=== PATIENT | female | born 1955 | race Caucasian/White ===

== ENCOUNTER 2018-08-22 16:12 | Inpatient (IN) ==
[2018-08-22] MEDS ORDERED: ZYLOPRIM PO PRN (18:51)
[2018-08-22] MEDS: LEVAQUIN 500 MG/D5W 500 MG/100 ML IVPB IV SCH (19:31)
[2018-08-22] MEDS: LOVENOX SUBQ SCH (19:31)
[2018-08-22] MEDS: PROTONIX IV SCH (19:32)
[2018-08-22] MEDS: SODIUM CHLORIDE 0.9% INJ SCH (19:32)
[2018-08-22] MEDS: ULTRAM PO PRN (19:32)
[2018-08-22] MEDS: SOLU-MEDROL IV SCH (19:32)
[2018-08-22] MEDS: DUONEB (A & A) INH SCH ×2 (20:05→23:45)
[2018-08-22 20:27] LABS: ALLEN TEST YES; BE -1.9 mmoll (-3.0-3.0); BLOOD TYPE ARTERIAL; HCO3-(ACT) 23.4 mmoll (20.0-26.0); O2(CT) 18.1 mL/dL (15.0-23.0); O2HB 96.1 % (95.0-99.0); PCO2(98.6) 35 mmHg (35-45); PO2(98.6) 95 mmHg (60-100); SAMPLE BLOOD; THB 13.3 g/dL (11.5-17.4); pH(98.6) 7.41 (7.35-7.45)
[2018-08-22 20:28] LABS: MODALITY CANNULA
[2018-08-22] MEDS: HUMALOG SUBQ SCH ×2 (21:33→21:34)
[2018-08-22] MEDS: GLUCOPHAGE PO SCH (21:33)
[2018-08-22] MEDS: NEURONTIN PO SCH (21:33)
[2018-08-22] MEDS: ZOCOR PO SCH (21:33)
[2018-08-22] MEDS ORDERED: HALL'S COUGH LOZENGE MT PRN (21:54)
[2018-08-23] MEDS: DUONEB (A & A) INH SCH ×6 (03:52→23:02)
[2018-08-23] MEDS: ULTRAM PO PRN ×3 (03:57→18:01)
[2018-08-23] MEDS: SOLU-MEDROL IV SCH ×3 (03:57→18:02)
--- NOTE | 2018-08-23 04:47 | HISTORY AND PHYSICAL ---
CHIEF COMPLAINT: Incessant cough, shortness of breath, wheezing for the last 2 days. HISTORY OF PRESENT ILLNESS: She is a 63-year-old, complicated diabetes, white female who was seen in the emergency room 3 days ago with upper respiratory infection with bronchitis. Sent home on outpatient treatment. She came in my office. She is extremely wheezing, shortness of breath. Admitted to the hospital for acute asthma exacerbation. PAST MEDICAL HISTORY: 1. Insulin-requiring type 2 diabetes. 2. Morbid obesity. 3. Peripheral neuropathy. 4. Hypertension. 5. Hyperlipidemia. 6. History of asthma. 7. History of pulmonary embolism. PAST SURGICAL HISTORY: 1. Tubal ligation. 2. Radical hysterectomy for endometrial cancer. 3. Right ear mastoidectomy. 4. Cholecystectomy by Dr. Mosquera in 2017. ALLERGIES: Reported to penicillin. SOCIAL HISTORY: Lives in [place]. , with 3 children. No smoking. No alcohol. Disabled. FAMILY HISTORY: Mom is alive with PSVT and heart failure, stable. Father is alive with complicated diabetes and chronic kidney disease. MEDICATIONS: Singulair 5 mg daily, metformin 1000 p.o. b.i.d., Neurontin 600 b.i.d., lisinopril 20 in the morning, Clarinex 10 mg in the morning, Zocor 40 daily, acarbose 50 once daily, Protonix 40 daily, Proventil as needed, allopurinol 100 daily, tramadol 50 q.6 as needed. PREVIOUS WORKUP: Cardiac catheterization was negative on 09/18/2012. REVIEW OF SYSTEMS: HEENT: Sniffles, coryza, postnasal drainage. Incessant cough. No earache. Slightly sore throat. Cardiopulmonary: Cough, wheezing, shortness of breath. No chest pain. Breasts: No lumps in the breasts. GI: No nausea, vomiting, abdominal pain. : No history of hesitancy, frequency, dysuria. No back pain. Musculoskeletal: No claudication symptoms. No skin rashes. No joint pain. Neurologic: No focal symptoms or weakness. PHYSICAL EXAMINATION: VITAL SIGNS: Temperature is 97 degrees, tachycardic. Vitals are stable. She is 5 feet 9 inches, 249 pounds. On 2 L nasal cannula. HEENT EXAMINATION: Atraumatic, normocephalic. Pupils equal, react to light. TMs are normal. Nose and throat are within normal limits. NECK: Supple. No lymphadenopathy. No goiter. CHEST: There is bilateral wheezing. CARDIOVASCULAR: Distant heart sounds. BREASTS: Examination deferred. ABDOMEN: Belly is soft, obese, nontender. Good bowel sounds. EXTREMITIES: No signs of gangrene. NEUROLOGIC: No obvious neurological deficits. INVESTIGATIONS: The labs are still pending. Chest x-ray in my office, basically bronchitis. ASSESSMENT AND PLAN: A 63-year-old, white female admitted to the hospital for acute asthma exacerbation. Follow up on the pending labs and the chest x-ray. In the meantime, continue on intravenous Levaquin, intravenous Solu-Medrol, bronchodilators. 1. Deep venous thrombosis and gastrointestinal prophylaxis with Lovenox and Protonix. 2. Reconcile home medicines. 3. Continue to watch the blood sugars, on sliding scale with insulin coverage. 4. Initiate vaccination protocol prior to the discharge. cc: Raad Miller MD
[2018-08-23 06:25] LABS: BASO# 0.01 X1000 (0.0-0.2); BASO% 0.1 % (0.0-0.8); HEMATOCRIT 41.3 % (37.0-47.0); HEMOGLOBIN 13.1 g/dL (12.0-16.0); IMM GRAN# 0.02 X1000 (0.0-0.04); IMM GRAN% 0.3 % (0.0-0.5); LYMPH# 0.85 X1000 (1.2-3.4); LYMPH% 11.6 % (20.5-51.1); MCHC 31.7 g/dL (33-37); MCV 75.8 FL (81-99); MONO# 0.03 X1000 (0.11-0.59); MONO% 0.4 % (1.7-9.3); MPV 9.8 FL (7.4-10.4); NEUT# 6.44 X1000 (1.4-6.5); NEUT% 87.6 % (42.2-75.2); PLT 220 X1000 (130-400); RBC 5.45 XMIL (4.2-5.4); RDW 14.9 % (11.5-14.5); WBC 7.35 X1000 (4.8-10.8)
[2018-08-23 06:31] LABS: HEMOGLOBIN A1C 8.8 % (4.8-6.0)
[2018-08-23 06:49] LABS: AGAP 15; ALB/GLOB RATIO 1.1; ALBUMIN 3.9 g/dL (3.5-5.0); ALKALINE PHOSPHATASE 124 U/L (32-104); BUN 19 mg/dL (8-22); CALCIUM 9.4 mg/dL (8.8-10.2); CHLORIDE 100 mmol/L (98-107); COSMO 291; CREATININE 0.9 mg/dL (0.5-0.9); ESTIMATED GFR > 60; GLUCOSE 396 mg/dL (70-104); GOT 26 U/L (10-30); GPT 25 U/L (10-36); POTASSIUM 5.1 mmol/L (3.5-5.1); SODIUM 136 mmol/L (136-145); TCO2 21 mmol/L (25-35); TOTAL BILIRUBIN 0.42 mg/dL (0.20-1.00); TOTAL PROTEIN 7.5 g/dL (6.3-8.3)
--- NOTE | 2018-08-23 06:52 | Diag Imaging Result Doc PS360 ---
EXAM: CHEST-1 VIEW HISTORY: SOB TECHNIQUE: Portable chest, single view COMPARISON: 12/04/2017 FINDINGS: Poor inspiratory effort. There is basilar atelectasis. No cardiomegaly. No vascular distention. Questionable tiny left pleural effusion. IMPRESSION: Basilar atelectasis. Follow-up PA and lateral recommended. Electronically signed by Brant Jansen 08/23/2018 6:50 AM
[2018-08-23] MEDS: HUMALOG SUBQ SCH ×4 (06:54→22:14)
[2018-08-23] MEDS ORDERED: PRECOSE PO SCH (09:00)
[2018-08-23] MEDS: SINGULAIR PO SCH (10:42)
[2018-08-23] MEDS: NEURONTIN PO SCH ×2 (10:42→22:15)
[2018-08-23] MEDS: GLUCOPHAGE PO SCH ×2 (10:43→22:15)
[2018-08-23] MEDS: CLARITIN PO SCH (10:43)
[2018-08-23] MEDS: PRINIVIL PO SCH (10:43)
[2018-08-23] MEDS ORDERED: HUMALOG SUBQ ONE (11:19)
[2018-08-23] MEDS: LOVENOX SUBQ SCH (18:02)
[2018-08-23] MEDS: LEVAQUIN 500 MG/D5W 500 MG/100 ML IVPB IV SCH (18:02)
[2018-08-23] MEDS: SODIUM CHLORIDE 0.9% INJ SCH (18:02)
[2018-08-23] MEDS: PROTONIX IV SCH (18:02)
[2018-08-23] MEDS: TYLENOL PO PRN (18:58)
[2018-08-23] MEDS: ZOCOR PO SCH (22:15)
[2018-08-24] MEDS ORDERED: HUMALOG SUBQ ONE ×2 (01:42→18:44)
[2018-08-24] MEDS: TYLENOL PO PRN ×3 (01:46→18:51)
--- NOTE | 2018-08-24 02:18 | PROGRESS NOTE ---
DATE: 08/23/2018 SUBJECTIVE: The patient is doing a little better. Complains of headache, shortness of breath, cough, wheezing, blood sugars running 400 from steroids. Complains of bleeding from the urine. She has hysterectomy. No bleeding from the stool. PHYSICAL EXAMINATION: Vital Signs: Tachycardic. Vitals are stable. HEENT: Within normal limits. Chest: Bilateral wheezing. Heart: Sounds are regular. Abdomen: Belly is soft, obese, nontender. Extremities: No peripheral edema. LABORATORY INVESTIGATIONS: Blood sugars 396. ASSESSMENT AND PLAN: 1. Acute asthma and bronchitis. Continue with present medical treatment. 2. Elevated blood sugar from the steroids. Continue insulin coverage. 3. Deep venous thrombosis prophylaxis with Lovenox. 4. Hematuria. Follow up on urinalysis. 5. Diabetes. Presently controlled with regimen. We will slowly cut down the steroids once she gets better. 6. Rule out urinary tract infection. 7. Continue with present medical therapy. LEVEL OF DOCUMENTATION: 25 minutes. cc: Raad Miller MD
[2018-08-24] MEDS: DUONEB (A & A) INH SCH ×6 (03:19→23:25)
[2018-08-24] MEDS: SOLU-MEDROL IV SCH ×3 (04:41→18:48)
[2018-08-24] MEDS: HUMALOG SUBQ SCH ×5 (05:38→20:42)
[2018-08-24] MEDS: SINGULAIR PO SCH (08:00)
[2018-08-24] MEDS: PRINIVIL PO SCH (08:01)
[2018-08-24] MEDS: NEURONTIN PO SCH ×2 (08:01→20:42)
[2018-08-24] MEDS: CLARITIN PO SCH (08:01)
[2018-08-24] MEDS: GLUCOPHAGE PO SCH ×2 (08:01→20:42)
[2018-08-24] MEDS ORDERED: PRECOSE PO SCH (09:00)
[2018-08-24] MEDS: ULTRAM PO PRN (11:12)
[2018-08-24] MEDS: LEVAQUIN 500 MG/D5W 500 MG/100 ML IVPB IV SCH (18:48)
[2018-08-24] MEDS: PROTONIX IV SCH (18:49)
[2018-08-24] MEDS: LOVENOX SUBQ SCH (18:49)
[2018-08-24] MEDS: SODIUM CHLORIDE 0.9% INJ SCH (18:49)
[2018-08-24] MEDS: ZOCOR PO SCH (20:42)
--- NOTE | 2018-08-24 23:34 | PROGRESS NOTE ---
DATE: 08/24/2018 SUBJECT: The patient still having substantial cough and wheezing. REVIEW OF SYSTEMS: None reported. OBJECTIVE: Temperature 97 degrees, tachycardic, vitals are stable.HEENT: Within normal limits. Chest: Bilateral wheezing. Heart: Sounds are regular. Belly: Is soft, nontender. No obvious neurological deficits noted. INVESTIGATIONS: U/A PND ASSESSMENT AND PLAN: 1. Acute asthmatic bronchitis. Continue oxygen, bronchodilators, IV steroids, IV antibiotics with Levaquin. 2. Elevated blood sugar due to steroids. Continue sliding scale with insulin coverage. Hematuria. Follow up on UA and C and S. 3. Status post hysterectomy due to endometrial cancer stable. Continue DVT, GI prophylaxis. 4. Hyperlipidemia on Zocor, incentive spirometry and continue present medical therapy. LEVEL OF DOCUMENTATION: 25 minutes. cc: Raad Miller MD MTDD
[2018-08-25] MEDS: HUMALOG SUBQ SCH ×6 (03:05→21:03)
[2018-08-25] MEDS: SOLU-MEDROL IV SCH ×3 (03:05→18:13)
[2018-08-25] MEDS: DUONEB (A & A) INH SCH ×6 (03:25→22:44)
[2018-08-25] MEDS: TYLENOL PO PRN ×3 (03:58→23:32)
[2018-08-25] MEDS: ULTRAM PO PRN (06:20)
[2018-08-25] MEDS: PRECOSE PO SCH ×3 (11:21→17:41)
[2018-08-25] MEDS: SINGULAIR PO SCH (11:21)
[2018-08-25] MEDS: NEURONTIN PO SCH ×2 (11:21→21:00)
[2018-08-25] MEDS: PRINIVIL PO SCH (11:23)
[2018-08-25] MEDS: GLUCOPHAGE PO SCH ×2 (11:23→21:00)
[2018-08-25] MEDS: CLARITIN PO SCH (11:24)
--- NOTE | 2018-08-25 12:28 | PROGRESS NOTE ---
DATE: 08/25/2018 SUBJECTIVE: Patient complains of severe headache. She feels like she is very congested. She is having dizziness when she moves her head back and forth. Consistent with benign postural vertigo. She was already told by Dr. Miller that she had severe nasal congestion and fluid behind her ears, I think that is what is probably causing her headache and her dizziness. OBJECTIVE: Vital Signs: Blood pressure 140/84, respirations 20, pulse 104, temperature 97.6 degrees Fahrenheit. General: She is an overweight, white female in no apparent distress. Very talkative probably due to the fact that she is on IV steroids. She does appear very anxious. HEENT: She does have nasal congestion. Lungs: Have scattered rales and wheezes. Heart: Regular rate and rhythm without murmurs, gallops, or friction rubs to a sinus tachycardia. Abdomen: Soft. Active bowel sounds. No organomegaly or tenderness. Neurological: Intact grossly except that she gets these dizzy when she moves her head. ASSESSMENT: 1. Bronchospasm. 2. Bronchitis. 3. Benign postural vertigo. 4. Apparent bilateral serous otitis media. 5. Nasal congestion. 6. Anxiety from her steroids. 7. Diabetes mellitus. PLAN: We will stop her Claritin as I think it is drying her out too much. We will put her on Xanax 0.25 mg every 6 hours for anxiety and it will also help with her vertigo. Place her Mucinex D 1 p.o. b.i.d. We will continue her other medications. cc: MD Raad Mtz Jr, MD
[2018-08-25] MEDS: XANAX PO SCH ×2 (14:10→21:00)
[2018-08-25] MEDS: MUCINEX D PO SCH ×2 (14:10→21:01)
[2018-08-25] MEDS: PROTONIX IV SCH (18:13)
[2018-08-25] MEDS: SODIUM CHLORIDE 0.9% INJ SCH (18:13)
[2018-08-25] MEDS: LOVENOX SUBQ SCH (18:14)
[2018-08-25] MEDS: LEVAQUIN 500 MG/D5W 500 MG/100 ML IVPB IV SCH (18:14)
[2018-08-25] MEDS: ZOCOR PO SCH (21:00)
[2018-08-26] MEDS: HUMALOG SUBQ SCH ×6 (01:37→20:18)
[2018-08-26] MEDS: XANAX PO SCH ×5 (01:37→23:53)
[2018-08-26] MEDS: SOLU-MEDROL IV SCH ×4 (01:38→19:33)
[2018-08-26] MEDS: ULTRAM PO PRN ×3 (02:21→17:36)
[2018-08-26] MEDS: DUONEB (A & A) INH SCH ×6 (03:25→22:00)
[2018-08-26] MEDS: PRINIVIL PO SCH (08:35)
[2018-08-26] MEDS: NEURONTIN PO SCH ×2 (08:35→20:21)
[2018-08-26] MEDS: PRECOSE PO SCH ×3 (08:35→17:35)
[2018-08-26] MEDS: SINGULAIR PO SCH (08:35)
[2018-08-26] MEDS: MUCINEX D PO SCH ×2 (08:35→20:19)
[2018-08-26] MEDS: GLUCOPHAGE PO SCH ×2 (08:36→20:20)
--- NOTE | 2018-08-26 11:09 | PROGRESS NOTE ---
DATE: 08/26/2018 SUBJECTIVE: The patient still complains of dizziness and headache. She is starting to drain better since we stopped her Claritin and put her on a decongestant. Her wheezing is better. She is still very anxious and talks very fast. This may be due to some of her medications. OBJECTIVE: HEENT: She has some nasal congestion. Neck: Supple. Lungs: Clear with only occasional wheeze. This has improved from yesterday. Heart: Regular rate and rhythm without murmurs, gallops, friction rubs. Abdomen: Soft. Active bowel sounds. No organomegaly or tenderness. Neurologic: Exam intact grossly. ASSESSMENT: 1. Bronchospasm. 2. Bronchitis. 3. Benign postural vertigo. 4. Bilateral serous otitis media. 5. Nasal congestion. 6. Anxiety. 7. Diabetes mellitus. PLAN: We will increase her Xanax to help with the vertigo and maybe with her anxiety as well. Otherwise, I do think she is getting better. cc: MD Raad Mtz Jr, MD
[2018-08-26] MEDS ORDERED: ZOFRAN IV PRN (17:10)
[2018-08-26] MEDS: LEVAQUIN 500 MG/D5W 500 MG/100 ML IVPB IV SCH (19:32)
[2018-08-26] MEDS: LOVENOX SUBQ SCH (19:33)
[2018-08-26] MEDS: PROTONIX IV SCH (19:33)
[2018-08-26] MEDS: ZOCOR PO SCH (20:24)
[2018-08-27] MEDS: ULTRAM PO PRN ×4 (01:04→22:39)
[2018-08-27] MEDS: HUMALOG SUBQ SCH ×6 (01:05→22:35)
[2018-08-27] MEDS: DUONEB (A & A) INH SCH ×6 (03:50→22:10)
[2018-08-27] MEDS: XANAX PO SCH (04:58)
[2018-08-27] MEDS: SOLU-MEDROL IV SCH ×3 (06:34→22:35)
--- NOTE | 2018-08-27 09:00 | Diag Imaging Result Doc PS360 ---
CHEST-2 VIEWS - 08/27/2018 INDICATION: SOB COMPARISON: 08/23/2018 FINDINGS: Lungs are hyperexpanded suggesting COPD. Lung volumes are improved from prior. There is probably a trace left pleural effusion. There is some trace linear atelectasis in the left lung base. IMPRESSION: Nonspecific findings. Electronically signed by Mario Contreras 08/27/2018 8:57 AM
[2018-08-27] MEDS: SINGULAIR PO SCH (09:15)
[2018-08-27] MEDS: PRINIVIL PO SCH (09:15)
[2018-08-27] MEDS: PRECOSE PO SCH ×3 (09:15→17:35)
[2018-08-27] MEDS: NEURONTIN PO SCH ×2 (09:15→22:35)
[2018-08-27] MEDS: GLUCOPHAGE PO SCH ×2 (09:16→22:35)
[2018-08-27 09:23] LABS: ALLEN TEST YES; BE -1.9 mmoll (-3.0-3.0); BLOOD TYPE ARTERIAL; HCO3-(ACT) 23.4 mmoll (20.0-26.0); METHB 0.8 % (0.0-1.5); O2(CT) 18.4 mL/dL (15.0-23.0); O2HB 95.4 % (95.0-99.0); PCO2(98.6) 35 mmHg (35-45); PO2(98.6) 80 mmHg (60-100); SAMPLE BLOOD; SAO2 97.5 % (95.0-100.0); THB 13.7 g/dL (11.5-17.4); pH(98.6) 7.41 (7.35-7.45)
[2018-08-27 09:24] LABS: MODALITY CANNULA
[2018-08-27] MEDS: MUCINEX D PO SCH ×2 (12:15→22:35)
[2018-08-27] MEDS: LOVENOX SUBQ SCH ×2 (17:36→18:31)
[2018-08-27] MEDS: LEVAQUIN 500 MG/D5W 500 MG/100 ML IVPB IV SCH ×2 (17:36→18:32)
[2018-08-27] MEDS: PROTONIX IV SCH ×2 (17:36→18:31)
--- NOTE | 2018-08-27 21:00 | PROGRESS NOTE ---
DATE: 08/27/2018 SUBJECTIVE: Interval history was reviewed. Patient continues to have incessant cough, wheezing. Blood sugars running high. PHYSICAL EXAMINATION: Vitals: Stable. HEENT: Within normal limits. Neck: Supple. No lymphadenopathy. Chest: wheezing. Heart: Sounds are regular. Abdomen: Belly is soft, nontender. Neurologic: No obvious neurological deficits. INVESTIGATIONS: ABG: pH is 7.41, pCO2 35, PO2 80 on 28%. Lactate was a little bit high. Blood sugars running 300. Urinalysis apparently was canceled. Chest x-ray nonspecific findings. ASSESSMENT AND PLAN: 1. Acute asthma, bronchitis. Continue on IV Levaquin, bronchodilators and guaifenesin. 2. Diabetes, worsening. Decrease IV steroids. 3. DVT and GI prophylaxis. 4. Urinalysis: Cultures were negative. We will check the labs in the morning. Continue present medical therapy. LEVEL OF DOCUMENTATION: 25 minutes. cc: Raad Miller MD MTDD
[2018-08-27] MEDS: ZOCOR PO SCH (22:34)
[2018-08-28] MEDS: HUMALOG SUBQ SCH ×6 (01:16→22:02)
[2018-08-28] MEDS: DUONEB (A & A) INH SCH ×6 (03:05→23:30)
[2018-08-28] MEDS: SOLU-MEDROL IV SCH ×3 (06:08→22:02)
[2018-08-28 07:20] LABS: AGAP 13; BUN 29 mg/dL (8-22); CALCIUM 9.4 mg/dL (8.8-10.2); CHLORIDE 98 mmol/L (98-107); COSMO 285; CREATININE 0.8 mg/dL (0.5-0.9); ESTIMATED GFR > 60; GLUCOSE 256 mg/dL (70-104); POTASSIUM 4.9 mmol/L (3.5-5.1); SODIUM 135 mmol/L (136-145); TCO2 24 mmol/L (25-35)
[2018-08-28 07:37] LABS: BASO# 0.04 X1000 (0.0-0.2); BASO% 0.3 % (0.0-0.8); HEMATOCRIT 40.5 % (37.0-47.0); HEMOGLOBIN 13.2 g/dL (12.0-16.0); IMM GRAN% 5.3 % (0.0-0.5); LYMPH# 1.34 X1000 (1.2-3.4); LYMPH% 8.9 % (20.5-51.1); MCH 24.5 PG (27-31); MCHC 32.6 g/dL (33-37); MCV 75.3 FL (81-99); MONO% 5.3 % (1.7-9.3); MPV 9.7 FL (7.4-10.4); NEUT# 12.01 X1000 (1.4-6.5); NEUT% 80.2 % (42.2-75.2); PLT 265 X1000 (130-400); RBC 5.38 XMIL (4.2-5.4); RDW 15.6 % (11.5-14.5); WBC 14.99 X1000 (4.8-10.8)
[2018-08-28] MEDS: PRINIVIL PO SCH (10:17)
[2018-08-28] MEDS: NEURONTIN PO SCH ×2 (10:17→22:01)
[2018-08-28] MEDS: GLUCOPHAGE PO SCH ×2 (10:17→22:01)
[2018-08-28] MEDS: SINGULAIR PO SCH (10:18)
[2018-08-28] MEDS: PRECOSE PO SCH ×3 (10:18→17:58)
[2018-08-28] MEDS: MUCINEX D PO SCH ×2 (10:19→22:01)
[2018-08-28] MEDS: ULTRAM PO PRN ×2 (10:24→22:01)
[2018-08-28] MEDS: SODIUM CHLORIDE 0.9% INJ SCH (18:00)
[2018-08-28] MEDS: PROTONIX IV SCH (18:00)
[2018-08-28] MEDS: LEVAQUIN 500 MG/D5W 500 MG/100 ML IVPB IV SCH (18:01)
[2018-08-28] MEDS: LOVENOX SUBQ SCH (18:01)
--- NOTE | 2018-08-28 21:43 | PROGRESS NOTE ---
DATE: 08/28/2018 SUBJECT: Patient has incessant cough nonproductive still wheezing. EXAMINATION: Temperature is 98 degrees, tachycardic, vitals are stable.HEENT: Within normal limits. Neck: Supple. Chest: No wheezing. Heart: Sounds are regular distant. Belly: Is soft, nontender. No obvious neurological deficits. INVESTIGATIONS: CBC, white cell count 14, hematocrit 40, platelet 265,000. ABG PO2 80 on 2 L. SMA 7, glucose 256. Chest x-ray was stable. ASSESSMENT AND PLAN: 1. Acute asthmatic bronchitis. Decrease IV steroids, oxygen, bronchodilators, Singulair, IV antibiotics . 2. Diabetes worsening with Solu-Medrol decrease yesterday 40 q.8 . 3. Symptomatic treatment with guaifenesin, gout on allopurinol. 4. Deep venous thrombosis prophylaxis with Lovenox, gastrointestinal prophylaxis with IV Protonix and hyperlipidemia on Zocor and will continue to monitor until she is better . LEVEL OF DOCUMENTATION: 25 minutes cc: Raad Miller MD
[2018-08-28] MEDS: ZOCOR PO SCH (22:01)
[2018-08-29] MEDS: HUMALOG SUBQ SCH ×6 (00:37→22:14)
[2018-08-29] MEDS: DUONEB (A & A) INH SCH ×6 (03:29→23:35)
[2018-08-29] MEDS: SOLU-MEDROL IV SCH ×4 (05:13→22:15)
[2018-08-29] MEDS: PRECOSE PO SCH ×3 (09:25→17:28)
[2018-08-29] MEDS: MUCINEX D PO SCH ×2 (09:25→22:16)
[2018-08-29] MEDS: GLUCOPHAGE PO SCH ×2 (09:25→22:16)
[2018-08-29] MEDS: NEURONTIN PO SCH ×2 (09:26→22:16)
[2018-08-29] MEDS: SINGULAIR PO SCH (09:26)
[2018-08-29] MEDS: PRINIVIL PO SCH (09:26)
[2018-08-29] MEDS: ULTRAM PO PRN (13:31)
[2018-08-29] MEDS: LOVENOX SUBQ SCH (18:26)
[2018-08-29] MEDS: SODIUM CHLORIDE 0.9% INJ SCH (18:26)
[2018-08-29] MEDS: PROTONIX IV SCH (18:26)
[2018-08-29] MEDS: LEVAQUIN 500 MG/D5W 500 MG/100 ML IVPB IV SCH (18:26)
[2018-08-29] MEDS: ZOCOR PO SCH (22:15)
[2018-08-30] MEDS: HUMALOG SUBQ SCH ×6 (01:45→22:16)
--- NOTE | 2018-08-30 02:39 | PROGRESS NOTE ---
DATE: 08/29/2018 SUBJECTIVE: The patient is a little better. Decreased her cough. The patient is in good spirits. OBJECTIVE: Vital Signs: Temperature is 98 degrees, pulse is 102. Vitals are stable. Room air sat is 100%. Heent: Within normal limits. Chest: Decreased wheezing. Heart: Sounds are very distant. Abdomen: Belly is soft, nontender. Obese. Neurologic: No neurological deficits. ASSESSMENT AND PLAN: 1. Acute asthmatic bronchitis is improving off oxygen. We will wean off steroids, continue on Levaquin. 2. Diabetes is still fluctuating due to steroids. 3. If stable we will discharge in the morning. Continue present medical therapy. LEVEL OF DOCUMENTATION: 25 minutes. cc: Raad Miller MD
[2018-08-30] MEDS: DUONEB (A & A) INH SCH ×6 (05:32→23:25)
[2018-08-30] MEDS: SOLU-MEDROL IV SCH (06:42)
[2018-08-30] MEDS ORDERED: SOLU-MEDROL IV SCH (09:00)
[2018-08-30] MEDS: PRECOSE PO SCH ×3 (09:35→16:49)
[2018-08-30] MEDS: GLUCOPHAGE PO SCH ×2 (09:36→22:15)
[2018-08-30] MEDS: PRINIVIL PO SCH (09:37)
[2018-08-30] MEDS: MUCINEX D PO SCH ×2 (09:37→22:15)
[2018-08-30] MEDS: SINGULAIR PO SCH (09:37)
[2018-08-30] MEDS: NEURONTIN PO SCH ×2 (09:37→22:15)
[2018-08-30] MEDS: LOVENOX SUBQ SCH (18:27)
[2018-08-30] MEDS: PROTONIX IV SCH (18:27)
[2018-08-30] MEDS: SODIUM CHLORIDE 0.9% INJ SCH (18:27)
[2018-08-30] MEDS: LEVAQUIN 500 MG/D5W 500 MG/100 ML IVPB IV SCH (18:29)
[2018-08-30] MEDS: ZOCOR PO SCH (22:15)
[2018-08-31] MEDS: HUMALOG SUBQ SCH ×2 (01:42→06:15)
--- NOTE | 2018-08-31 04:44 | PROGRESS NOTE ---
DATE: 08/30/2018 SUBJECTIVE: Patient has again incessant cough and decreased wheezing. OBJECTIVE: On examination, temperature 98 degrees. Vitals are stable.Chest: Bilateral air entry. Heart: Sounds distant. Belly is soft and nontender. ASSESSMENT AND PLAN: 1. Acute asthmatic bronchitis. Decreased with IV steroids. 2. Diabetes worsening due to steroids. Continue on sliding scale with insulin coverage. 3. DVT and GI prophylaxis. Continue with present medical therapy. 4. If she is stable over the next 24 hours, we will discharge in the morning. LEVEL OF DOCUMENTATION: 25 minutes. cc: Raad Miller MD
[2018-08-31] MEDS: DUONEB (A & A) INH SCH (05:43)
[2018-08-31 07:26] VITALS: BP 146/74
[2018-08-31] MEDS ORDERED: PREVNAR 13 IM ONE (08:24)
[2018-08-31] MEDS: PRINIVIL PO SCH (09:23)
[2018-08-31] MEDS: NEURONTIN PO SCH (09:24)
[2018-08-31] MEDS: SINGULAIR PO SCH (09:24)
[2018-08-31] MEDS: GLUCOPHAGE PO SCH (09:24)
[2018-08-31] MEDS: PRECOSE PO SCH (09:25)
[2018-08-31] MEDS: MUCINEX D PO SCH (09:25)
--- NOTE | 2018-09-02 09:42 | DISCHARGE SUMMARY ---
ADMISSION DATE: 08/22/2018 DISCHARGE DATE: 08/31/2018 DISCHARGING DIAGNOSIS: Acute asthmatic bronchitis. ANCILLARY DIAGNOSES: 1. Insulin requiring type 2 diabetes. 2. Morbid obesity. 3. Peripheral neuropathy in both legs due to diabetes. 4. Hypertension. 5. Hyperlipidemia. 6. History of asthma. 7. History of pulmonary embolism. Stable. 8. History of endometrial cancer, status post radical hysterectomy. BRIEF HISTORY: Please see the history and physical that was done on 08/22/2018. In brief, she is a 63-year-old morbidly obese white female with complicated diabetes with neuropathy who came in with incessant cough, shortness of breath, and wheezing. The patient has history of asthmatic bronchitis. HOSPITAL COURSE: Patient was given oxygen, bronchodilators, IV steroids, IV antibiotics. Blood sugars were running high due to steroids. The rest of the hospital course was uneventful. Patient has some hematuria. Follow-up on urine cultures was negative. LABORATORIES: CBC: White cell count 7.3, hematocrit 41, platelets 220,000. ABG on room air: PH is 7.41, pCO2 35, PO2 95 on 28%. SMA7: BUN 19, creatinine 0.9, A1c 8.8. LFTs were normal. IMAGING: Chest x-ray was stable. DISPOSITION: The patient was given: 1. Pneumococcal vaccine 08/31/2018. 2. Singulair 10 mg daily, metformin 1000 p.o. b.i.d., Neurontin 600 p.o. b.i.d., lisinopril 20 daily, Clarinex 10 mg in the morning, Zocor 40 daily, Protonix 40 daily, ProAir as needed, allopurinol 100 mg daily, tramadol 56 as needed, acarbose 50 t.i.d. Follow up in my office in 2 weeks. cc: Raad Miller MD
== END 2018-08-31 09:31 | disposition home or self-care (01) | DRG 203 ==
LOC: DIRADM 16:12 → 4N 16:22
PROVIDERS: ADMIT Internal Medicine; ATTEND Internal Medicine
CPT/HCPCS: 71010; 71020; 71045; 71046; 80048; 80053; 82805; 82948; 83036; 85025; 87088; 90670; 94640; 94760; 94761; 94799; A9270; C9113; J1650; J1815; J1956; J2920; J2930; S0164; XXXXX